=== PATIENT | female | born 2000 | race African-American/Black ===

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

== ENCOUNTER 2019-06-21 19:56 | Emergency (ER) | payer MEDICAID ==
[~2019-06-21] VITALS: Ht 167.6 cm; Wt 95.5 kg
[2019-06-21 20:09] VITALS: Ht 167.6 cm; Wt 95.5 kg
[2019-06-21] MEDS ORDERED: NAPROSYN500 MG PO (21:54)
[2019-06-21 22:22] VITALS: BP 145/84
== END 2019-06-21 22:23 | disposition home or self-care (01) ==
LOC: D.ER 19:56
DX: B34.9 Viral infection, unspecified (principal)

== ENCOUNTER 2019-06-23 23:01 | Emergency (ER) | payer MEDICAID ==
[~2019-06-23] VITALS: Ht 167.6 cm; Wt 97.7 kg
[~2019-06-23 23:01] MED LIST: NAPROSYN500 MG PO
[2019-06-23 23:03] VITALS: Ht 167.6 cm; Wt 97.7 kg
[2019-06-23 23:28] LABS: BASOPHILS 0.2 % (0-2); EOSINOPHILS 0.1 % (0-7); HEMOGLOBIN 8.2 g/dL (12-16); IMMATURE GRANULOCYTES 0.4 % (0-5); MCH 27.7 pg (26.0-34.0); MCHC 31.5 g/dL (31.0-37.0); MCV 87.8 fL (80.0-100.0); MEAN PLATELET VOLUME 9.5 fL (7.4-10.4); MONOCYTES 8.6 % (2-11); NEUTROPHILS 77.7 % (40-80); PLATELET COUNT 310 10x3/uL (130-400); RBC 2.96 10x6/uL (4.00-5.40); RDW 15.5 % (11.5-14.5); WBC 10.8 10x3/uL (4.8-10.8)
[2019-06-23 23:33] LABS: ANION GAP 12.3 mmol/L (8-16); CALCIUM 8.9 mg/dL (8.5-10.1); CARBON DIOXIDE 21.7 mmol/L (21.0-32.0); CREATININE - SERUM 1.4 mg/dL (0.6-1.3)
[2019-06-23 23:46] LABS: BILIRUBIN - TOTAL 0.27 mg/dL (0.2-1.3); PROTEIN - SERUM 7.5 g/dL (6.4-8.2); THYROID STIMULATING HORMONE 1.25 uIU/mL (0.36-3.74)
[2019-06-24] MEDS ORDERED: INDOCIN25 MG PO (00:01)
[2019-06-24 00:22] LABS: ERYTHROCYTE SEDIMENTATION RATE 59 mm/hr (0-20)
[2019-06-24 00:27] LABS: BILIRUBIN NEGATIVE (NEGATIVE); GLUCOSE NEGATIVE (NEGATIVE); KETONE SMALL mg/dL (NEGATIVE); NITRITE NEGATIVE (NEGATIVE); SPECIFIC GRAVITY 1.015 (1.005-1.020); UROBILINOGEN NORMAL (NORMAL)
[2019-06-24 01:25] VITALS: BP 147/78
== END 2019-06-24 01:14 | disposition home or self-care (01) ==
LOC: D.ER 23:01
PROVIDERS: Family Medicine
DX: M25.512 Pain in left shoulder (principal); M25.562 Pain in left knee; R50.9 Fever, unspecified

== ENCOUNTER 2019-06-26 17:54 | Emergency (ER) | payer MEDICAID ==
[~2019-06-26] VITALS: Ht 167.6 cm; Wt 97.7 kg
[~2019-06-26 17:54] MED LIST changes: +INDOCIN25 MG PO
[2019-06-26 18:18] VITALS: Ht 167.6 cm; Wt 97.7 kg
[2019-06-26 19:04] LABS: BASOPHILS 0.1 % (0-2); EOSINOPHILS 0 % (0-7); HEMATOCRIT 24.6 % (36.0-48.0); HEMOGLOBIN 8.2 g/dL (12-16); IMMATURE GRANULOCYTES 0.4 % (0-5); LYMPHOCYTES 7.7 % (15-50); MCH 27.7 pg (26.0-34.0); MCHC 33.3 g/dL (31.0-37.0); MCV 83.1 fL (80.0-100.0); MEAN PLATELET VOLUME 8.8 fL (7.4-10.4); MONOCYTES 4.5 % (2-11); NEUTROPHILS 87.3 % (40-80); PLATELET COUNT 356 10x3/uL (130-400); RBC 2.96 10x6/uL (4.00-5.40); RDW 15.6 % (11.5-14.5); WBC 9.1 10x3/uL (4.8-10.8)
[2019-06-26 19:22] LABS: ANION GAP 16.2 mmol/L (8-16); CALCIUM 8.9 mg/dL (8.5-10.1); CARBON DIOXIDE 19.5 mmol/L (21.0-32.0); CREATININE - SERUM 1.1 mg/dL (0.6-1.3); POTASSIUM - SERUM 3.7 mmol/L (3.5-5.1)
[2019-06-26 19:28] LABS: ALBUMIN 2.6 g/dL (3.4-5.0); BILIRUBIN - TOTAL 0.23 mg/dL (0.2-1.3); PROTEIN - SERUM 7.9 g/dL (6.4-8.2)
[2019-06-26 21:53] LABS: BILIRUBIN NEGATIVE (NEGATIVE); GLUCOSE NEGATIVE (NEGATIVE); KETONE NEGATIVE (NEGATIVE); NITRITE NEGATIVE (NEGATIVE); UROBILINOGEN NORMAL (NORMAL)
[2019-06-26] MEDS ORDERED: STERAPRED DS 1010 MG PO (22:33)
[2019-06-26 22:36] LABS: % SATURATION 6 % (15-55); IRON 16 ug/dl (35-150); TOTAL IRON BIND CAPACITY 262 ug/dl (260-445); UNSAT IRON BIND CAPACITY 246 ug/dl (150-375)
[2019-06-26 23:21] VITALS: BP 145/69
== END 2019-06-26 23:21 | disposition home or self-care (01) ==
LOC: D.ER 17:54
PROVIDERS: Family Medicine
DX: M79.10 Myalgia, unspecified site (principal); D64.9 Anemia, unspecified

== ENCOUNTER 2019-12-11 13:37 | Emergency (ER) | payer MEDICAID ==
[~2019-12-11] VITALS: Ht 167.6 cm; Wt 87.3 kg
[~2019-12-11 13:37] MED LIST changes: +STERAPRED DS 1010 MG PO
[2019-12-11 14:36] VITALS: BP 146/96; Ht 167.6 cm; Wt 87.3 kg
[2019-12-11] MEDS ORDERED: HYDROXYCHLOROQ200 MG PO (14:46)
[2019-12-11] MEDS ORDERED: VOLTAREN100 GM TOPICAL (14:47)
[2019-12-11] MEDS ORDERED: FERROUS SULFAT325 MG PO (14:48)
[2019-12-11] MEDS ORDERED: VITAMIN E1000 UNI1 PO (14:48)
[2019-12-11] MEDS ORDERED: VIC-FORTE CAPSUL1 MG PO (14:48)
[2019-12-11] MEDS ORDERED: PREDNISONE5 MG PO (14:51)
[2019-12-11 15:44] LABS: UDS - AMPHET POSITIVE QUAL (NEGATIVE); UDS - BARB NEGATIVE QUAL (NEGATIVE); UDS - BENZO NEGATIVE QUAL (NEGATIVE); UDS - COCAINE NEGATIVE QUAL (NEGATIVE); UDS - OPIATE NEGATIVE QUAL (NEGATIVE); UDS - PCP NEGATIVE QUAL (NEGATIVE); UDS - THC POSITIVE QUAL (NEGATIVE)
[2019-12-11 15:49] LABS: BILIRUBIN NEGATIVE (NEGATIVE); GLUCOSE NEGATIVE (NEGATIVE); KETONE NEGATIVE (NEGATIVE); NITRITE NEGATIVE (NEGATIVE); UROBILINOGEN NORMAL (NORMAL)
[2019-12-11 15:57] LABS: BASOPHILS 0.2 % (0-2); EOSINOPHILS 0 % (0-7); HEMATOCRIT 30.7 % (36.0-48.0); HEMOGLOBIN 10.2 g/dL (12-16); LYMPHOCYTES 10.7 % (15-50); MCH 29.8 pg (26.0-34.0); MCHC 33.2 g/dL (31.0-37.0); MCV 89.8 fL (80.0-100.0); MEAN PLATELET VOLUME 8.9 fL (7.4-10.4); MONOCYTES 1.7 % (2-11); NEUTROPHILS 87.4 % (40-80); PLATELET COUNT 377 10x3/uL (130-400); RBC 3.42 10x6/uL (4.00-5.40); RDW 13.7 % (11.5-14.5)
[2019-12-11 16:00] LABS: CALC OSMOLALITY 277 mosm/kg (275-300); CALCIUM 9.4 mg/dL (8.5-10.1); CARBON DIOXIDE 18.7 mmol/L (21.0-32.0); CHLORIDE - SERUM 107 mmol/L (98-107); GLUCOSE 107 mg/dL (74-106); POTASSIUM - SERUM 3.5 mmol/L (3.5-5.1); SODIUM 137 mmol/L (136-145); UREA NITROGEN 23 mg/dL (7-18); eGFR NON AFRICAN AMERICAN 75 mL/min (90-120)
[2019-12-11 16:07] LABS: ALKALINE PHOSPHATASE 48 U/L (30-120); ALT (SGPT) 30 U/L (10-68); BILIRUBIN - TOTAL 0.33 mg/dL (0.2-1.3); PROTEIN - SERUM 8.5 g/dL (6.4-8.2)
[2019-12-11 16:34] LABS: HCG SERUM NEGATIVE (NEGATIVE)
--- NOTE | 2019-12-11 17:41 | NUR ---
DR COLES NOTIFIED AND REVIEWED PT'S BEHAVIOR AND ASSESSMENT. PT IS LOW RISK. PATIENT DENIES HAVING ANY SUICIDAL THOUGHTS OR INTENTIONS. STATES SHE HAD THOUGHTS OF WISHING TO BE ABOUT 3 WEEKS AGO DUE TO MEDICATION SHE WAS TAKING. RESOURCES GIVEN AND SHE VERBALIZES UNDERSTANDING.
== END 2019-12-11 18:37 | disposition home or self-care (01) ==
LOC: D.ER 13:37
PROVIDERS: Family Medicine
DX: F32.9 Major depressive disorder, single episode, unspecified (principal); D64.9 Anemia, unspecified; F19.10 Other psychoactive substance abuse, uncomplicated

== ENCOUNTER → 2020-06-26 08:50 | Outpatient (CLI) | payer MEDICAID ==
[2019-12-11 14:36] VITALS: BMI 31.0
[~2020-06-26 08:50] MED LIST changes: +FERROUS SULFAT325 MG PO; +HYDROXYCHLOROQ200 MG PO; +PREDNISONE5 MG PO; +VIC-FORTE CAPSUL1 MG PO; +VITAMIN E1000 UNI1 PO; +VOLTAREN100 GM TOPICAL
--- NOTE | 2020-06-28 09:41 | EC ---
PATIENT:ANDREW YANCEY DATE OF SERVICE: 06/26/20 SEX: F MEDICAL RECORD: [id number] DATE OF : [birth year] LOCATION:D[facility] AGE OF PATIENT: 19 ADMISSION DATE: 06/26/20 REFERRING PHYSICIAN: INTERPRETING PHYSICIAN: SIENNA MELGOAZ MD ECHOCARDIOGRAM REPORT ECHO CHARGES 4 ECHO COMPLETE Date: 06/26/20 CLINICAL DIAGNOSIS: IRREGULAR HEART BEAT ECHOCARDIOGRAPHIC MEASUREMENTS (adult normal given) AC root (d.<3.7cm) 3.1 cm LV Septum d (<1.2 cm> 1.2 cm Valve Excursion 2.1 cm LV Septum (systole) 1.7 cm Left Atria (s.<4.0cm> 4.1 cm LVPW d(<1.2cm) 0.7 cm RV (d.<2.3cm) 3.2 cm LVPW (sytole) 0.9 cm LV diastole(<5.6CM) 5.6 cm MV E-F(>70mm/sec) cm LV systole 4.4 cm LVOT Diameter 2.1 cm MV exc.(>10mm) 1.0 cm Est.ejection fraction (50-75%) % DOPPLER: LVIT cm/sec A 101 cm/sec E 103 cm/sec LA cm/sec RVSP 24 mmHg LVOT 101 cm/sec AOP1/2T m/s Asc. Ao 140 cm/sec RVOT 68 cm/sec RA cm/sec PA 102 cm/sec AV Gradient Peak 7.9 mmHg AV Mean 4.5 mmHg AV Area 2.7 cm MV Gradient Peak 5.9 mmHg MV Mean 3.5 mmHg MV Area cm COMMENTS: Airconditioning Plant Operator: Sophy [facility] Family Program Specialist: 3 Dr. Steele TAPE# Pericardial Effusion Y DATE OF SERVICE: Adequate 2D, color flow imaging, spectral Doppler, and M-Mode. FINDINGS: Borderline LVH. LV internal dimension is normal. Wall motion is normal. EF is greater than or equal to 55%. Aortic valve is tricuspid. No evidence of stenosis by Doppler interrogation. Left atrium upper limits of normal to mildly dilated at 4.1 cm. Mitral valve shows no prolapse. Trace MR. Right side is grossly normal. Trace TR. ECHOCARDIOGRAM REPORT [id number] ANDREW YANCEY TRANSINT:[id number] Voice Confirmation ID: [id number] DOCUMENT ID: [id number] SIENNA MELGOZA MD at 0941 CC: [id number] DICTATION DATE: 06/27/20805 LABORER PLUMBING: 06/27/20 0846 DEP CLI 06/26/20 [facility] [address] [place] [address]
== END | disposition home or self-care (01) ==
LOC: D.ECHO 08:50
PROVIDERS: ATTEND Nurse Practitioner Family
DX: R00.8 Other abnormalities of heart beat (principal); R80.9 Proteinuria, unspecified

== ENCOUNTER → 2020-06-27 07:27 | Outpatient (CLI) | payer MEDICAID ==
[2019-12-11 14:36] VITALS: BMI 31.0
== END | disposition home or self-care (01) ==
LOC: D.CT 06-26 11:30
PROVIDERS: ATTEND Nurse Practitioner Family
DX: R00.8 Other abnormalities of heart beat (principal)